=== PATIENT | male | born 1985 | race African-American/Black ===

== ENCOUNTER 2019-08-31 18:48 | Emergency (ER) | payer OTHER ==
[2019-08-31 19:03] VITALS: RESP 18
[2019-08-31] MEDS ORDERED: LIDOCAINE 1% INJ 10MG/ML (20 ML MDV) SQ STA (19:59)
[2019-08-31] MEDS ORDERED: WATER FOR IRRIG, STERILE 1,000 ML BTL IRRIGATION ONE (19:59)
[2019-08-31] MEDS ORDERED: DIPH,PERTUS(ACELL)TETVAC-LF 0.5 ML VIAL IM ONE (19:59)
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
[2019-08-31] MEDS ORDERED: IBUPROFEN 600 MG STARTER PACK 4 TAB BTL PO STA (22:13)
[2019-08-31 22:19] VITALS: BP 125/76; PULSE 70; TEMP 98.1
== END 2019-08-31 22:20 | disposition home or self-care (01) ==
LOC: EC 18:48
DX: S61.210A Laceration without foreign body of right index finger without damage to nail, initial encounter (principal); Z23 Encounter for immunization; F17.200 Nicotine dependence, unspecified, uncomplicated; W26.8XXA Contact with other sharp object(s), not elsewhere classified, initial encounter
CPT/HCPCS: 90715; 90471; 99283; 12001; J2001

== ENCOUNTER 2021-10-18 19:35 | Emergency (ER) | payer OTHER ==
[2021-10-18 19:42] VITALS: TEMP 98.2
[2021-10-18] MEDS ORDERED: ONDANSETRON ODT 4 MG TAB PO STA (20:28)
[2021-10-18] MEDS ORDERED: HYDROmorphone 0.5 MG/0.5 ML SYRINGE IM STA (20:28)
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
[2021-10-18 23:44] VITALS: BP 126/82; PULSE 78; RESP 16
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
== END 2021-10-18 23:43 | disposition home or self-care (01) ==
LOC: EC 19:35
DX: S99.912A Unspecified injury of left ankle, initial encounter (principal); M53.3 Sacrococcygeal disorders, not elsewhere classified; F17.200 Nicotine dependence, unspecified, uncomplicated; V86.55XA Driver of 3- or 4- wheeled all-terrain vehicle (ATV) injured in nontraffic accident, initial encounter
CPT/HCPCS: 72220; 73562; 73610; 99283; 96372; J1170